=== PATIENT | male | born 1950 | race Caucasian/White ===

== ENCOUNTER → 2017-04-23 | Outpatient (CLI) | payer MEDICARE, OTHER | LOC: M.MRI 12:57 | DX: M51.24 Other intervertebral disc displacement, thoracic region (principal); K57.20 Diverticulitis of large intestine with perforation and abscess without bleeding; E03.9 Hypothyroidism, unspecified; E78.5 Hyperlipidemia, unspecified ==

== ENCOUNTER → 2017-06-20 | Outpatient (CLI) | payer MEDICARE, OTHER | LOC: M.CT 06-14 16:09 → M.ULTRA 09:04 | DX: C34.90 Malignant neoplasm of unspecified part of unspecified bronchus or lung (principal); I10 Essential (primary) hypertension; N28.1 Cyst of kidney, acquired; K57.32 Diverticulitis of large intestine without perforation or abscess without bleeding; M54.5 Low back pain; G89.29 Other chronic pain; Z98.890 Other specified postprocedural states ==

== ENCOUNTER → 2017-06-29 | Outpatient (CLI) | payer MEDICARE, OTHER | LOC: M.MRI 06:28 | DX: G45.9 Transient cerebral ischemic attack, unspecified (principal); I10 Essential (primary) hypertension ==

== ENCOUNTER → 2017-10-29 | Outpatient (CLI) | payer MEDICARE, OTHER ==
--- NOTE | 2017-11-01 12:02 | EEG ---
[address] [address] EEG STUDY REPORT Name: ERIK JANE Room: [facility]#: [id number] Admission: 10/29/17 Attend Phys: Erik Sinha MD Discharge: Date of : 46 Report #: [id number] THIS REPORT FOR: //name// CC: Erik Sinha DATE OF SERVICE: 10/29/2017 This patient is being evaluated for right-sided weakness. EEG was done by placing the electrode by standard 10-20 system of electrode placement. Both referential and sequential montages were used for recording. The patient's background activity is about 9 Hz and 30 microvolts. It is a symmetrical activity. The patient went to sleep that is associated with bilateral slowing and vertex sharp waves. Photic stimulation is unremarkable. Throughout the record, no active epileptiform activity was noticed. IMPRESSION: This patient's EEG is unremarkable. <ELECTRONICALLY SIGNED> By: Earl Bess MD 11/01/17 1202 [id number] Bess MD /nt
== END ==
LOC: M.MRI 10-24 16:57
DX: M50.323 Other cervical disc degeneration at C6-C7 level (principal); M41.82 Other forms of scoliosis, cervical region; M48.02 Spinal stenosis, cervical region; I10 Essential (primary) hypertension; C34.90 Malignant neoplasm of unspecified part of unspecified bronchus or lung; I65.22 Occlusion and stenosis of left carotid artery; G89.29 Other chronic pain; F32.9 Major depressive disorder, single episode, unspecified

== ENCOUNTER → 2017-12-17 | Outpatient (CLI) | payer MEDICARE, OTHER ==
[2017-12-17 11:09] LABS: CREATININE 1.2 mg/dL (0.6-1.3)
== END ==
LOC: M.LAB 10:30 → M.MRI 11:30
PROVIDERS: Internal Medicine
DX: E03.9 Hypothyroidism, unspecified (principal); G89.29 Other chronic pain; M54.5 Low back pain; F32.9 Major depressive disorder, single episode, unspecified; I10 Essential (primary) hypertension; C34.90 Malignant neoplasm of unspecified part of unspecified bronchus or lung; Z68.28 Body mass index [BMI] 28.0-28.9, adult

== ENCOUNTER 2018-07-14 17:53 | Emergency (ER) | payer MEDICARE, OTHER ==
[~2018-07-14] VITALS: Ht 180.3 cm; Wt 90.7 kg
== END 2018-07-14 18:01 ==
LOC: M.ERS 17:53
DX: I46.9 Cardiac arrest, cause unspecified (principal); Z85.9 Personal history of malignant neoplasm, unspecified